=== PATIENT | male | born 1955 | race Two or more races ===

== ENCOUNTER 2024-12-07 09:31 | Inpatient (IN) | payer OTHER ==
[~2024-12-07] VITALS: Ht 172.7 cm; Wt 105.0 kg
[~2024-12-07 09:31] MED LIST: CHOL20007 OR; FEXO-140 PO; HYDR-4609 PO; MULT-1018 PO; ROSU5TAB5 PO; TAMS0.4C39 PO; [UNRECOGNIZED DRUG - CODE] SC
[2024-12-07] MEDS: GABAPENTIN 300 MG CAP ONE (10:00)
[2024-12-07] MEDS: CELECOXIB 100 MG CAP ONE (10:00)
[2024-12-07] MEDS ORDERED: PROPOFOL 10 MG/ML 20 ML IV ONE ×2 (10:12→12:28)
[2024-12-07] MEDS ORDERED: ONDANSETRON HCL 4 MG/2 ML VIAL ONE (10:12)
[2024-12-07] MEDS ORDERED: KETOROLAC TROMETH 30 MG/ML 1ML VIAL ONE (10:12)
[2024-12-07] MEDS ORDERED: LIDOCAINE 1% INJ PF 5ML AMP ONE (10:12)
[2024-12-07] MEDS ORDERED: DexAMETHasone SOD PHOS 10MG/1ML VIAL INJ ONE (10:12)
[2024-12-07] MEDS ORDERED: GLYCOPYRROLATE 0.2 MG/ML 1ML VIAL ONE (10:12)
[2024-12-07] MEDS ORDERED: KETAMINE 50mg/ML 1ml syringe ONE (10:13)
[2024-12-07] MEDS: CELECOXIB 100 MG CAP PO ONE (10:25)
[2024-12-07] MEDS: GABAPENTIN 300 MG CAP PO ONE (10:25)
[2024-12-07] MEDS: ACETAMINOPHEN IV 1000 MG/100ML (10MG/ML) IV ONE (10:25)
[2024-12-07] MEDS: ACETAMINOPHEN IV 100 ML IV ONE (11:22)
[2024-12-07] MEDS: CEFEPIME 1GM/ 50ML 50 ML IV ONE (11:24)
[2024-12-07] MEDS: VANCOMYCIN 1GM/200ML PM 200 ML IV ONE (11:24)
[2024-12-07] MEDS: TRANEXAMIC ACID 20 ML ONE (11:24)
[2024-12-07] MEDS: SODIUM CHLORIDE 0.9% 1,000 ML IV SCH (11:30)
[2024-12-07] MEDS ORDERED: ePHEDrine SULFATE 50 MG/ML AMP ONE (11:48)
[2024-12-07] MEDS: VANCOMYCIN HCL 1000 MG VL ONE (11:59)
--- NOTE | 2024-12-07 13:07 | DVHOP2 ---
Operative Report - 2 Report Details Date: 12/07/24 Preop Diagnosis: Right hip degenerative arthritis Postop Diagnosis: Right hip degenerative arthritis Surgeon: Mert Clay MD Merchandising Manager: Pino BISHOP Anesthesiologist: Dwayne Cazares CRNA Anesthesia: Regional Drains: Deepak closed wound suction Implant: Bobby whitea stem size six, 36 ceramic head 0 neck length, 52 Nisha acetabular shell with flat polyethylene liner Consent: The patient was informed of the risks and benefits of the procedure. These include but are not limited to complications of anesthesia, postoperative infection, incomplete relief of symptoms, recurrence of symptoms, damage to blood vessels, nerves and tendons, deep venous thrombosis, pulmonary embolism and possible need for repeat surgery in the future. Complications: None Estimated Blood Loss: 100 cc Fluids: See anesthesia record Findings: Osteophytes, denuded cartilage with eburnated bone Indications for Surgery: Right hip degenerative arthritis with severe pain and functional impairment despite nonoperative management Name of Procedure Performed Right total hip arthroplasty Procedure Details Procedure Details: The patient was brought to the operating room and given spinal anesthetic with adequate analgesia obtained. The patient was positioned lateral decubitus with the operative side up, stabilized with hip positioners. Axillary roll applied and lower extremities well-padded. Preop patient received IV Ancef, cefepime and IV tranexamic acid. Surgical timeout was performed verifying patient, laterality and procedure. The hip and lower extremity were prepped and draped in sterile fashion. Incision was made over the greater trochanter. Subcutaneous dissection and hemostasis were performed with Bovie and aqua mantis. I identified the fascia which was incised with Bovie and Charnley retractor inserted. I identified the gluteus medius that was split at the junction of its anterior and middle thirds with Bovie then incised off the anterior greater trochanter. I incised the anterior gluteus minimus which was elevated off the capsule. I elevated the reflected head of the rectus. I then performed anterior capsulectomy with Bovie. I extended capsular incision posterior medially and superior laterally. The head was dislocated. Femoral neck cut was made with saw and head removed. Head diameter was calipered on the back table. I adjusted retractors to expose the acetabulum. I circumferentially removed labral tissue with Bovie. I removed foveal tissue with Bovie, curette and rongeur. I then began reaming sequentially paying attention to inclination and version as I went. I trialed which was stable so acetabular implant was brought into the field and tapped into the acetabulum with good fixation achieved. I inserted the screw to block the insertion hole. I then brought up the flat liner which was spun to make sure there was no soft tissue entrapment then tapped in and stability verified. I then brought my attention to the proximal femur. The leg was placed in the sterile bag anteriorly. I cleaned up soft tissue at the greater trochanter shoulder with Bovie. I then used a rongeur to clip the lateral neck. I then used a box osteotome, canal finder and lateralizing rasp. I sequentially broached to size six. I revised the femoral neck cut with calcar planer. I trialed with a 0 neck length and [36] head which was stable. Intraoperative AP pelvis x-ray was obtained to verify length, offset and implant size. The hip was dislocated. Neck and head trial removed. Broach was removed. I tapped in the femoral implant with good fixation achieved. I cleaned and dried the Medina taper and tapped on the ceramic head. The hip was again reduced and tested for stability which was good. I irrigated with bactisurge. I placed a 2 grams of vancomycin in the deep and superficial wound. I repaired the minimus and medius to the anterior greater trochanter with #[5] FiberWire in running fashion . I oversewed the repair with 0 Vicryl. I repaired the fascia with #1 Ethibond interrupted [id number]. Deep subcutaneous tissue was closed with 0 Vicryl. Superficial subcutaneous tissue was closed with 2-0 Vicryl. The skin was closed with hanny. I then applied the Deepak closed wound suction. Patient to lerated the procedure well and was brought to the recovery room in stable condition. Condition Stable Disposition Still a Patient MERT CLAY MD Dec 07, 2024 13:07
[2024-12-07] MEDS ORDERED: diphenhdrAMINE HCL 12.5 MG/5 ML UD PO PRN (13:15)
[2024-12-07] MEDS ORDERED: ONDANSETRON HCL 4 MG/2 ML VIAL IV PRN ×2 (13:15→13:45)
[2024-12-07 13:25] VITALS: PULSE 97; RESP 13; O2SAT 97
[2024-12-07] MEDS ORDERED: hydrALAZINE HCL 20 MG/ML VL IV PRN (13:45)
[2024-12-07] MEDS ORDERED: HYDROmorphone HCL 2 MG/ML VL/or syr IV PRN (13:45)
[2024-12-07] MEDS ORDERED: NALOXONE HCL 0.4 MG/ML VIAL IV PRN (13:45)
[2024-12-07] MEDS ORDERED: FLUMAZENIL 0.1 MG/ML INJ 10ML MDV IV PRN (13:45)
[2024-12-07] MEDS ORDERED: fentaNYL CITRATE 100 MCG/2 ML VL IV PRN (13:45)
[2024-12-07] MEDS ORDERED: ePHEDrine SULFATE 50 MG/ML AMP IV PRN (13:45)
--- NOTE | 2024-12-07 14:12 | DVH ---
CLINICAL INDICATION: INTRA OP ; pain TECHNIQUE: 1 radiographic views of the pelvis were obtained. Comparison: None FINDINGS/IMPRESSION: Postsurgical changes from right hip arthroplasty.
--- NOTE | 2024-12-07 15:45 | DVH ---
EXAM: XY PELVIS AP CLINICAL INDICATION: postop TECHNIQUE: XY PELVIS AP Comparison: XY PELVIS AP on DOS: 12/07/24 FINDINGS/IMPRESSION: RIGHT TOTAL HIP ARTHROPLASTY. MODERATE LEFT HIP OSTEOARTHRITIS.
[2024-12-07] MEDS: oxyCODONE HCL 5MG TAB PO PRN ×2 (16:36→19:00)
[2024-12-07 17:15] VITALS: PULSE 74; RESP 18; O2SAT 97
[2024-12-07] MEDS: ceFAZolin 2 GM/D5W50ml 50 ML IV SCH (17:56)
[2024-12-07] MEDS: TAMSULOSIN HYDROCHLORIDE 0.4 MG CAP PO SCH (17:56)
[2024-12-07] MEDS: ACETAMINOPHEN 325 MG TAB PO SCH (17:57)
[2024-12-07] MEDS: KETOROLAC TROMETH 30 MG/ML 1ML VIAL IV SCH (17:57)
[2024-12-07 20:00] VITALS: PULSE 54; RESP 18; O2SAT 98
[2024-12-07 21:00] VITALS: BP 115/73; PULSE 78; RESP 20; TEMP 98.4; O2SAT 94
[2024-12-07] MEDS: PREGABALIN 25 MG CAP PO SCH (21:46)
[2024-12-08] VITALS (8 sets, daily range): BP systolic 113–144; BP diastolic 61–76; PULSE 54–71; RESP 16–20; TEMP 97.6–98.7; O2SAT 92–99
[2024-12-08] MEDS: oxyCODONE HCL 5MG TAB PO PRN (02:00)
[2024-12-08 06:57] LABS: Basophils # (auto) 0 10 ^3/uL (0-0.2); Basophils % (auto) 0.1 % (0.0-2.0); Eosinophils # (auto) 0 10 ^3/uL (0-0.8); Hematocrit 39.1 % (41.0-53.0); Hemoglobin 12.8 g/dL (13.5-17.5); Lymphocytes % (auto) 11.5 % (10.0-50.0); Mean Corpuscular Hgb Conc. 32.8 g/dL (32.0-36.0); Mean Corpuscular Volume 85.5 fL (80.0-100.0); Monocytes # (auto) 1.1 10 ^3/uL (0-1.3); Neutrophils # (auto) 14.6 10 ^3/uL (1.6-8.6); Neutrophils % (auto) 82.4 % (37.0-80.0); Nucleated Red Blood Cells % 0.1 %; Platelet Count (auto) 262 10^3/uL (140-450); Red Blood Cells 4.58 10^6/uL (4.5-5.90); Red Cell Distribution Width 12.7 % (11.8-14.3); White Blood Cell 17.7 10^3/uL (4.4-10.8)
[2024-12-08 07:01] LABS: Anion Gap 9 (5-15); Carbon Dioxide 23 mmol/L (20-31); Chloride 104 mmol/L (98-107); Potassium 4.6 mmol/L (3.5-5.1)
[2024-12-08 07:02] LABS: Calcium 9.2 mg/dL (8.7-10.4); Sodium 136 mmol/L (136-145)
[2024-12-08 07:07] LABS: BUN/Creatinine Ratio 12.5 (10.0-20.0); Blood Urea Nitrogen 12 mg/dL (9-23)
[2024-12-08 07:08] LABS: Glucose 122 mg/dL (74-106)
[2024-12-08] MEDS: APIXABAN 2.5 MG TAB PO SCH (09:17)
[2024-12-08] MEDS: DOCUSATE SOD 100 MG CAP PO PRN (15:16)
--- NOTE | 2024-12-08 16:55 | DVHINCON2 ---
Date Seen: Dec 08, 2024 Referring Physician Orthopedic surgeon. Reason for Consultation Medical management. History of Present Illness 69-year-old male with a known history of dyslipidemia, BPH, degenerative joint disease of the right hip who was brought in by orthopedics for elective proce dure. Patient is status post right total hip arthroplasty postop Bear one. Patient is currently complaining of 7/10 pain in the right hip. Patient otherwise denies any chest pain shortness breath fevers chills nausea vomiting diarrhea hematemesis hematochezia melena dysuria hematuria. Past Medical History Degenerative joint disease of the right hip Dyslipidemia BPH Past Surgical History Status post right hip total arthroplasty Allergies: Coded Allergies: Penicillins (Unverified Allergy, Severe, Syncope, 12/03/24) Home Meds Reported Medications Multiple Vitamin (Multivitamins) Tab, 1 TAB PO DAILY, #30 TAB 2 Refills 12/03/24 Cholecalciferol (VITAMIN D3) 2,000 Unit Tab, 2000 UNIT OR DAILY, TAB 12/03/24 Omalizumab (Xolair) 300 Mg/2 Ml Inj, 300 MG SC once monthly, INJ 12/03/24 Hydrocodone-Acetaminophen (Hydrocodone Bitartrate/AC 7.5-300 mg) 1 Tab Tab, 1 TAB PO PRN, TAB 12/03/24 Fexofenadine Hcl (Fexofenadine Hcl) 180 Mg Tab, 180 MG PO DAILY, TAB 12/03/24 Tamsulosin Hcl (Tamsulosin Hcl) 0.4 Mg Cap, 0.4 MG PO DAILY, CAP 12/03/24 Rosuvastatin Calcium (Crestor) 5 Mg Tab, 5 MG PO DAILY, TAB 12/03/24 Current Medications Current Medications Medications (Trade) Dose Ordered Sig/Sujey Route PRN Reason Start Time Stop Time Status Last Admin Tamsulosin HCl (Flomax) 0.4 mg QPM PO 12/07/24 18:00 12/07/24 17:56 Patient Own Medication 180 mg DAILY PO 12/08/24 10:00 Pregabalin (Lyrica Capsule) 50 mg BID PO 12/07/24 22:00 12/08/24 09:18 Apixaban (Eliquis) 2.5 mg BID PO 12/08/24 10:00 01/12/25 09:59 12/08/24 09:17 Acetaminophen (Tylenol Tablet) 650 mg Q6HP PO 12/07/24 18:00 12/08/24 11:42 Ketorolac Tromethamine (Toradol Injection) 15 mg Q6HR IV 12/07/24 18:00 12/12/24 17:59 12/08/24 11:42 Docusate Sodium (Colace Capsule) 100 mg BIDPRN PRN PO FOR CONSTIPATION 12/08/24 13:15 12/08/24 15:16 Patient Own Medication 1 HS PO 12/08/24 21:00 UNV Atorvastatin Calcium (Lipitor) 10 mg HS PO 12/08/24 22:00 Review of Systems 12 review of system were negative except mentioned above. 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 Labs/Diagnostic Data Labs Test 12/08/24 06:05 Range/Units White Blood Count 17.7 H 4.4-10.8 10^3/uL Red Blood Count 4.58 4.5-5.90 10^6/uL Hemoglobin 12.8 L 13.5-17.5 g/dL Hematocrit 39.1 L 41.0-53.0 % Mean Corpuscular Volume 85.5 80.0-100.0 fL Mean Corpuscular Hemoglobin 28.0 28.0-32.0 pg Mean Corpuscular Hemoglobin Concent 32.8 32.0-36.0 g/dL Red Cell Distribution Width 12.7 11.8-14.3 % Platelet Count 262 140-450 10^3/uL Mean Platelet Volume 8.3 6.9-10.8 fL Neutrophils (%) (Auto) 82.4 H 37.0-80.0 % Lymphocytes (%) (Auto) 11.5 10.0-50.0 % Monocytes (%) (Auto) 6.0 0.0-12.0 % Eosinophils (%) (Auto) 0.0 0.0-7.0 % Basophils (%) (Auto) 0.1 0.0-2.0 % Neutrophils # (Auto) 14.6 H 1.6-8.6 10 ^3/uL Lymphocytes # (Auto) 2.0 0.4-5.4 10 ^3/uL Monocytes # (Auto) 1.1 0-1.3 10 ^3/uL Eosinophils # (Auto) 0 0-0.8 10 ^3/uL Basophils # (Auto) 0 0-0.2 10 ^3/uL Nucleated Red Blood Cells 0.1 % Sodium Level 136 136-145 mmol/L Potassium Level 4.6 3.5-5.1 mmol/L Chloride Level 104 98-107 mmol/L Carbon Dioxide Level 23 20-31 mmol/L Anion Gap 9 5-15 Blood Urea Nitrogen 12 9-23 mg/dL Creatinine 0.96 0.700-1.30 mg/dL Glomerular Filtration Rate Calc 85 >90 mL/min BUN/Creatinine Ratio 12.5 10.0-20.0 Serum Glucose 122 H 74-106 mg/dL Calcium Level 9.2 8.7-10.4 mg/dL Assessment 69-year-old male with a known history of BPH , dyslipidemia, degenerative joint disease who was brought in by orthopedics for elective procedure of the right hip. 1. Dyslipidemia on statin 2. BPH on tamsulosin 3. Degenerative joint disease of the right hip status post right total hip arthroplasty -thank you for the consultation, pain meds as needed, physical therapy evaluation and treatment -Resume statin and tamsulosin. Plan discussed with: Patient Date of Service: Dec 08, 2024 Billing Provider: JEFF LIAO MD Common Visit Codes: NOT BILLABLE JEFF LIAO MD Dec 08, 2024 16:55
--- NOTE | 2024-12-08 20:18 | DVHPN2 ---
Progress Note Progress Note S: Patient seen and examined. Pain well controlled 7-01/23 today. Denies chest or shortness of breath. Denies numbness, paresthesias or weakness. O: AFVSS Exam: NAD, a+ox4, unlabored breathing RLE: dressings c/d/I; fires Q/HS/EHL/FHL/TA/GS muscles; SILT L3-S1; BCR; 2+ DP and PT pulses; BCR A/P: POD#1 s/p R ARIE -IV ABX x 24 hours -DVT ppx: SCDs; Blood thinner as prescribed per protocol -Pain control with hospitalist -WBAT, posterior hip precaution Did physical therapy today The patient will be ready to be discharged once pain is controlled , possible tomorrow Plan discussed with: Patient Visit Coding Surgery Date of Service if different f: Dec 08, 2024 Billing Provider: TIMMY LARA Surgery Visit Codes: [id number] INP/OBS CARE(MOD) TIMMY LARA Dec 08, 2024 20:18
[2024-12-08] MEDS ORDERED: PATIENTS OWN MEDICATION PO SCH (21:00)
[2024-12-08] MEDS: ATORVASTATIN 20 MG TAB PO SCH (21:33)
[2024-12-09 01:00] VITALS: BP 137/69; PULSE 67; RESP 18; TEMP 97.8; O2SAT 94
[2024-12-09 05:00] VITALS: BP 126/67; PULSE 63; RESP 18; TEMP 98.1; O2SAT 95
[2024-12-09 09:00] VITALS: BP 125/66; PULSE 69; RESP 15; TEMP 97.9; O2SAT 96
[2024-12-09 09:20] LABS: Basophils # (auto) 0 10 ^3/uL (0-0.2); Basophils % (auto) 0.1 % (0.0-2.0); Eosinophils # (auto) 0.3 10 ^3/uL (0-0.8); Hematocrit 39.1 % (41.0-53.0); Hemoglobin 12.9 g/dL (13.5-17.5); Lymphocytes # (auto) 4.7 10 ^3/uL (0.4-5.4); Lymphocytes % (auto) 33.9 % (10.0-50.0); Mean Corpuscular Hemoglobin 28.2 pg (28.0-32.0); Mean Corpuscular Hgb Conc. 33.1 g/dL (32.0-36.0); Mean Corpuscular Volume 85.2 fL (80.0-100.0); Monocytes # (auto) 0.6 10 ^3/uL (0-1.3); Monocytes % (auto) 4.5 % (0.0-12.0); Neutrophils # (auto) 8.2 10 ^3/uL (1.6-8.6); Neutrophils % (auto) 59.5 % (37.0-80.0); Nucleated Red Blood Cells % 0.1 %; Platelet Count (auto) 251 10^3/uL (140-450); Red Blood Cells 4.58 10^6/uL (4.5-5.90); Red Cell Distribution Width 13.6 % (11.8-14.3); White Blood Cell 13.7 10^3/uL (4.4-10.8)
--- NOTE | 2024-12-09 10:51 | DVHPN2 ---
Progress Note - Dictate Date Seen: Dec 09, 2024 Medical Necessity Reason Pt with a Central, PICC or Fol: No Subjective Patient was lying comfortably in bed during my evaluation reports some postoperative hip pain that is being well managed with the help of pain medication today. Patient reports that he was able to get up and walk with the help of physical therapy and his walker and was able to get down the [place] to the nurse's station and back to his bed with some postoperative hip pain. Patient reports feeling much more stable today compared to yesterday and is ready to go home. vital signs Vital Sign Date Time Temp Pulse Resp B/P (MAP) Pulse Ox O2 Delivery O2 Flow Rate FiO2 12/09/24 09:00 97.9 69 15 125/66 (85) 96 97.9 12/09/24 08:00 Room Air* 0 21 Total Intake and Output 12/08/24 12/08/24 12/09/24 15:00 23:00 07:00 Intake Total 3600 ml 1600 ml Output Total 800 ml 300 ml 1950 ml Balance -800 ml 3300 ml -350 ml medications Current Medications Medications Dose Ordered Sig/Sujey Route Start Time Stop Time Status Last Admin Dose Admin Tamsulosin HCl 0.4 mg QPM PO 12/07/24 18:00 12/08/24 17:20 0.4 MG Patient Own Medication 180 mg DAILY PO 12/08/24 10:00 Pregabalin 50 mg BID PO 12/07/24 22:00 12/09/24 09:17 50 MG Apixaban 2.5 mg BID PO 12/08/24 10:00 01/12/25 09:59 12/09/24 09:17 2.5 MG Sodium Chloride 1,000 ml @ 125 mls/hr Q8H IV 12/07/24 11:30 12/09/24 05:03 125 MLS/HR Acetaminophen 650 mg Q6HP PO 12/07/24 18:00 12/09/24 07:10 650 MG Ketorolac Tromethamine 15 mg Q6HR IV 12/07/24 18:00 12/12/24 17:59 12/09/24 00:38 15 MG Ondansetron HCl 4 mg Q4HP PRN IV 12/07/24 13:15 Oxycodone HCl 5 mg Q4HP PRN PO 12/07/24 11:30 12/08/24 02:00 5 MG Oxycodone HCl 10 mg Q4HP PRN PO 12/07/24 11:30 12/09/24 10:11 10 MG Diphenhydramine HCl 25 mg Q6HP PRN PO 12/07/24 13:15 Docusate Sodium 100 mg BIDPRN PRN PO 12/08/24 13:15 12/08/24 21:32 100 MG Patient Own Medication 1 HS PO 12/08/24 21:00 UNV Atorvastatin Calcium 10 mg HS PO 12/08/24 22:00 12/08/24 21:33 10 MG objective A&O x4 in no acute distress Hip range of motion grossly limited with pain on movement Deepak dressing clean, dry, intact, and maintaining suction No distal edema or calf tenderness to palpation Neurovascularly intact with cap refill less than 2 seconds laboratory and microbiology Laboratory Tests 12/09/24 08:49 12/08/24 06:05 Test 12/08/24 06:05 Range/Units Serum Glucose 122 H 74-106 mg/dL Assessment/Plan Patient to be discharged home and advised to remain weight-bearing as tolerated with the assistance of a walker. I instructed the patient to follow up with our office in 10-14 days for his 1st postoperative evaluation and to maintain his dressings clean, dry, intact, and maintaining suction. Rx sent via our outpatient EMR system. I also advised the patient to call our office if he has any remaining questions or concerns. He understood and agreed. Plan discussed with: Patient MELÉNDEZ,JENCORRINE BISHOP Dec 09, 2024 10:51
--- NOTE | 2024-12-09 10:52 | DVHDS2 ---
Discharge Summary Date of Admission Dec 07, 2024 at 11:28 Date of Discharge: Dec 09, 2024 Labs/Diagnostic Data: Laboratory Results Test 12/09/24 08:49 12/08/24 06:05 White Blood Count 13.7 10^3/uL (4.4-10.8) Red Blood Count 4.58 10^6/uL (4.5-5.90) Hemoglobin 12.9 g/dL (13.5-17.5) Hematocrit 39.1 % (41.0-53.0) Mean Corpuscular Volume 85.2 fL (80.0-100.0) Mean Corpuscular Hemoglobin 28.2 pg (28.0-32.0) Mean Corpuscular Hemoglobin Concent 33.1 g/dL (32.0-36.0) Red Cell Distribution Width 13.6 % (11.8-14.3) Platelet Count 251 10^3/uL (140-450) Mean Platelet Volume 8.2 fL (6.9-10.8) Neutrophils (%) (Auto) 59.5 % (37.0-80.0) Lymphocytes (%) (Auto) 33.9 % (10.0-50.0) Monocytes (%) (Auto) 4.5 % (0.0-12.0) Eosinophils (%) (Auto) 2.0 % (0.0-7.0) Basophils (%) (Auto) 0.1 % (0.0-2.0) Neutrophils # (Auto) 8.2 10 ^3/uL (1.6-8.6) Lymphocytes # (Auto) 4.7 10 ^3/uL (0.4-5.4) Monocytes # (Auto) 0.6 10 ^3/uL (0-1.3) Eosinophils # (Auto) 0.3 10 ^3/uL (0-0.8) Basophils # (Auto) 0 10 ^3/uL (0-0.2) Nucleated Red Blood Cells 0.1 % Sodium Level 136 mmol/L (136-145) Potassium Level 4.6 mmol/L (3.5-5.1) Chloride Level 104 mmol/L (98-107) Carbon Dioxide Level 23 mmol/L (20-31) Anion Gap 9 (5-15) Blood Urea Nitrogen 12 mg/dL (9-23) Creatinine 0.96 mg/dL (0.700-1.30) Glomerular Filtration Rate Calc 85 mL/min (>90) BUN/Creatinine Ratio 12.5 (10.0-20.0) Serum Glucose 122 mg/dL (74-106) Calcium Level 9.2 mg/dL (8.7-10.4) Other Laboratory Tests 12/09/24 08:49 12/08/24 06:05 Brief Hx & Hospital Course: Patient was brought to the hospital on Friday to undergo a right total hip arthroplasty. He tolerated the procedure well without complications and was kept overnight for postoperative observation. Patient remained medically stable but was experiencing severe postoperative hip pain that was limiting his physical activity and ambulation. Pain has been much better controlled today and patient reports that he was able to get up and walk with the help of physical therapy and his walker and was able to get down the [place] to the nurse's station and back to his room with some postoperative hip pain. Patient was otherwise feeling well denying any other complaint or concern during my evaluation and was ready to go home. Condition at Discharge: Stable Final Diagnosis/Problems List Right hip degenerative arthritis Discharge Disposition: Home Discharge Instruct/Medications Diet: Regular Activity: See Comment Activity comment: Patient to remain weight-bearing as tolerated with the assistance of a walker Follow Up/Referral: I instructed the patient to follow up with our office in 10-14 days for his 1st postoperative evaluation Medications: Rx sent via our outpatient EMR system Discharge Statement: "Patient was advised to return to the ER or call 911 if any headaches, dizziness, shortness of breath, chest pain, abdominal pain, bleeding, fevers, or worsening of medical condition. Patient was counseled about treatment plan, medications, possible side effects, patientverbalized understanding. All questions were answered to the best of my ability. This discharge took greater then 30 minutes in planning, reviewing documentation, counseling the patient, and discussing with other team members." ASSESSMENT ASSESSMENT Assessment Right hip degenerative arthritis PEG MELÉNDEZ Dec 09, 2024 10:52
[2024-12-09 13:00] VITALS: BP 151/71; PULSE 81; RESP 16; TEMP 97.9; O2SAT 94
[2024-12-09 15:49] VITALS: BP 151/71; PULSE 81; RESP 16; TEMP 97.9; O2SAT 95
[2024-12-09 17:00] VITALS: BP 144/78; PULSE 75; RESP 16; TEMP 98; O2SAT 95
== END 2024-12-09 18:44 | disposition home or self-care (01) | DRG 470 ==
LOC: SUR 09:31 → OVERFLOW 11:28 → WEST WING 17:24
PROVIDERS: ADMIT Orthopaedic Surgery; ATTEND Orthopaedic Surgery
PROC: 0SR904A Replacement of Right Hip Joint with Ceramic on Polyethylene Synthetic Substitute, Uncemented, Open Approach (ICD-10-PCS; principal; 2024-12-07 11:23)
DX: M16.11 Unilateral primary osteoarthritis, right hip (principal); E78.5 Hyperlipidemia, unspecified; N40.0 Benign prostatic hyperplasia without lower urinary tract symptoms; Z88.0 Allergy status to penicillin; Z79.899 Other long term (current) drug therapy
CPT/HCPCS: 36415; 72170; 80048; 85025; 86850; 86900; 86901; 97110; 97116; 97163; 97530; G0378; J0131; J1100; J1885; J2405; J2704

== ENCOUNTER 2025-04-25 07:42 | Inpatient (IN) | payer OTHER ==
[~2025-04-25] VITALS: Ht 172.7 cm; Wt 79.0 kg
--- NOTE | 2025-04-25 09:35 | ED.PDOC ---
GI ASSESSMENT HPI Comments 69 year old male presents to the ED with a chief complaint of abdominal pain onset last night. Patient states he began experiencing abdominal pain, nausea/vomiting since last night as well as diarrhea. He has been experiencing bowel movement about every hour, noticed blood in stool, worsened throughout the night. Last colonoscopy was about 5 years ago. Denies hematemesis, dizziness, headache, fever, chills, dysuria, hematuria. No other symptoms or modifying factors present at this time. Chief Complaint: Abdominal Pain Time Seen by MD: 09:30 Reviewed Notes: Medications, Allergies Allergies: Coded Allergies: Penicillins (Unverified Allergy, Severe, Syncope, 12/03/24) Home Meds Reported Medications Multiple Vitamin (Multivitamins) Tab, 1 TAB PO DAILY, #30 TAB 2 Refills 12/03/24 Cholecalciferol (VITAMIN D3) 2,000 Unit Tab, 2000 UNIT OR DAILY, TAB 12/03/24 Omalizumab (Xolair) 300 Mg/2 Ml Inj, 300 MG SC once monthly, INJ 12/03/24 Hydrocodone-Acetaminophen (Hydrocodone Bitartrate/AC 7.5-300 mg) 1 Tab Tab, 1 TAB PO PRN, TAB 12/03/24 Fexofenadine Hcl (Fexofenadine Hcl) 180 Mg Tab, 180 MG PO DAILY, TAB 12/03/24 Tamsulosin Hcl (Tamsulosin Hcl) 0.4 Mg Cap, 0.4 MG PO DAILY, CAP 12/03/24 Rosuvastatin Calcium (Crestor) 5 Mg Tab, 5 MG PO DAILY, TAB 12/03/24 Information Source: Patient, Spouse Mode of Arrival: Ambulatory Timing: Hours Duration: Since onset Prehospital treatment: None Quality: Sharp Stool: Blood Streaked, Loose Severity: Moderate Recent: None Recent Hx of: None Pain Location: Diffuse Modifying Factors: Nothing Associated sign and symptoms: Nausea, Vomiting, Diarrhea, Abdominal Pain, Blood in Stool Past Medical History PAST MEDICAL HISTORY: Denies Surgical History: Denies all surgeries Surgical History (Other): hip replacement Family History Family History: Reviewed,noncontributory to illness, No family hx of Cancer, No family hx of DM, No family hx of Heart shaun, No family hx of HTN, No family hx ofKidney shaun, No family hx of Liver shaun, No family hx of Lung shaun, No family hx of Stroke Social History Smoker: Non-Smoker Alcohol: Denies ETOH Use Drugs: Denies Drug Use Lives In: Home Constitutional: denies: chills, diaphoresis, fatigue, fever, malaise, sweats, weakness, others EENTM: denies: blurred vision, double vision, ear bleeding, ear discharge, ear drainage, ear pain, ear ringing, eye pain, eye redness, hearing loss, mouth pain, mouth swelling, nasal discharge, nose bleeding, nose congestion, nose pain, photophobia, tearing, throat pain, throat swelling, voice changes, others Respiratory: denies: cough, hemoptysis, orthopnea, SOB at rest, shortness of breath, SOB with excertion, stridor, wheezing, others Cardiovascular: denies: chest pain, dizzy spells, diaphoresis, Dyspnea on exertion, edema, irregular heart beat, left arm pain, lightheadedness, palpitations, PND, syncope, others Gastrointestinal: reports: abdominal pain, diarrhea, nausea, rectal bleeding, vomiting; denies: abdomen distended, blood streaked bowels, constipated, dysphagia, difficulty swallowing, hematemesis, melena, poor appetite, poor fluid intake, rectal pain, others Genitourinary: denies: burning, dysuria, flank pain, frequency, hematuria, incontinence, penile discharge, penile sore, pain, testicle pain, testicle swelling, urgency, others Neurological: denies: dizziness, fainting, headache, left sided numbness, left sided weakness, numbness, paresthesia, pre-existing deficit, right sided numbness, right sided weakness, seizure, speech problems, tingling, tremors, weakness, others Musculoskeletal: denies: back pain, gout, joint pain, joint swelling, muscle pain, muscle stiffness, neck pain, others Integumetry: denies: bruises, change in color, change in hair/nails, dryness, laceration, lesions, lumps, rash, wounds, others Allergic/Immunocompromised: denies: Difficulty Healing, Frequent Infections, Hives, Itching, others Hematologic/Lymphatic: denies: anemia, blood clots, easy bleeding, easy bruising, swollen glands, others Endocrine: denies: excessive hunger, excessive sweating, excessive thirst, excessive urination, flushing, intolerance to cold, intolerance to heat, unexplained weight gain, unexplained weight loss, others Psychiatric: denies: anxiety, bipolar disorder, depression, hopeless, panic disorder, schizophrenia, sleepless, suicidal, others All Other Systems: Reviewed and Negative Physical Exam General Appearance: Normal HEENT: Normal ENT Inspection, Pharynx Normal, TMs Normal Neck: Full Range of Motion, Non-Tender, Normal, Normal Inspection Respiratory: Chest Non-Tender, Lungs Clear, No Accessory Muscle Use, No Respiratory Distress, Normal Breath Sounds Cardiovascular: No Edema, No JVD, No Murmur, No Gallop, Normal Peripheral Pu lses, Regular Rate/Rhythm Breast Exam: Deferred Gastrointestinal: No Organomegaly, Non Tender, No Pulsatile Mass, Normal Bowel Sounds, Soft Genitalia: Deferred Pelvic: Deferred Rectal: Deferred Extremities: No calf tenderness, Normal capillary refill, Normal inspection, Normal range of motion, Non-tender, No pedal edema Musculoskeletal : Apperance: Normal Neurologic: Alert, deep 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 Was a procedure done?: No GI differential Dx Differential Diagnosis: Gastritis/PUD, Gastroenteritis, Inflammatory BD, Ischemic Bowel, Dehydration, Electrolyte Imbalance X-Ray, Labs, Meds, VS Vital Signs Date Time Temp Pulse Resp B/P (MAP) Pulse Ox O2 Delivery O2 Flow Rate FiO2 04/25/25 10:32 70 15 126/70 04/25/25 10:10 Room Air* 0 21 04/25/25 10:09 98.0 77 18 157/84 (108) 98 98.0 04/25/25 10:02 77 18 157/84 04/25/25 07:43 97.7 91 16 139/84 97 97.7 Lab Test 04/25/25 09:36 Range/Units White Blood Count 13.4 H 4.4-10.8 10^3/uL Red Blood Count 5.38 4.5-5.90 10^6/uL Hemoglobin 15.3 13.5-17.5 g/dL Hematocrit 45.9 41.0-53.0 % Mean Corpuscular Volume 85.3 80.0-100.0 fL Mean Corpuscular Hemoglobin 28.4 28.0-32.0 pg Mean Corpuscular Hemoglobin Concent 33.3 32.0-36.0 g/dL Red Cell Distribution Width 13.5 11.8-14.3 % Platelet Count 308 140-450 10^3/uL Mean Platelet Volume 7.7 6.9-10.8 fL Neutrophils (%) (Auto) 74.5 37.0-80.0 % Lymphocytes (%) (Auto) 18.9 10.0-50.0 % Monocytes (%) (Auto) 6.3 0.0-12.0 % Eosinophils (%) (Auto) 0.1 0.0-7.0 % Basophils (%) (Auto) 0.2 0.0-2.0 % Neutrophils # (Auto) 10.0 H 1.6-8.6 10 ^3/uL Lymphocytes # (Auto) 2.5 0.4-5.4 10 ^3/uL Monocytes # (Auto) 0.8 0-1.3 10 ^3/uL Eosinophils # (Auto) 0 0-0.8 10 ^3/uL Basophils # (Auto) 0 0-0.2 10 ^3/uL Nucleated Red Blood Cells 0.1 % Prothrombin Time 10.8 9.3-11.8 sec Prothrombin Time INR 1.02 0.9-1.15 Activated Partial Thromboplast Time 27.9 24.5-34.5 SEC Sodium Level 140 136-145 mmol/L Potassium Level 5.2 H 3.5-5.1 mmol/L Chloride Level 105 98-107 mmol/L Carbon Dioxide Level 26 20-31 mmol/L Anion Gap 9 5-15 Blood Urea Nitrogen 7 L 9-23 mg/dL Creatinine 1.07 0.700-1.30 mg/dL Glomerular Filtration Rate Calc 74 >90 mL/min BUN/Creatinine Ratio 6.5 L 10.0-20.0 Serum Glucose 98 74-106 mg/dL Calcium Level 9.9 8.7-10.4 mg/dL Current Medications Medications (Trade) Dose Ordered Sig/Sujey Route Start Time Stop Time Status Last Admin Sodium Chloride 1,000 ml @ 1,000 mls/hr Q1H ONCE IV 04/25/25 09:30 04/25/25 10:29 DC 04/25/25 10:03 Ondansetron HCl (Zofran) 4 mg ONCE ONCE IV 04/25/25 09:30 04/25/25 09:31 DC 04/25/25 10:02 Morphine Sulfate 4 mg ONCE ONCE IV 04/25/25 09:30 04/25/25 09:31 DC 04/25/25 10:02 Time of 1ST Reevaluation: 10:00 Reevaluation 1ST: Unchanged Patient Education/Counseling: Diagnosis, Treatment, Need For Follow Up Family Education/Counseling: Diagnosis, Treatment, Need For Follow Up SEPSIS Sepsis Screen Date sepsis recognized/suspect: Apr 25, 2025 Time Sepsis recognized/suspect: 742 Recent Procedure: No On Antibiotic Therapy: No Respiratory Rate >20: No Heart Rate >90: Yes Temp<36 C (96.8 F) or >38.3 C: No SBP <90 or MAP <65 mmHG: No New Acute Mental Status Change: No Is the patient on CPAP, BIPAP,: No Physician Orders Ct Ab Pel With Iv Con Only (04/25/25 09:27) Metronidazole 500mg/100ml (Flagyl 500mg/ (04/25/25 12:00) Vital Signs Date Time Temp Pulse Resp B/P (MAP) Pulse Ox O2 Delivery O2 Flow Rate FiO2 04/25/25 10:32 70 15 126/70 04/25/25 10:10 Room Air* 0 21 04/25/25 10:09 98.0 77 18 157/84 (108) 98 98.0 04/25/25 10:02 77 18 157/84 04/25/25 07:43 97.7 91 16 139/84 97 97.7 Laboratory Tests Test 04/25/25 09:36 White Blood Count 13.4 10^3/uL (4.4-10.8) H Medications Medications Dose Ordered Sig/Sujey Route Start Time Stop Time Status Last Admin Dose Admin Morphine Sulfate 4 mg ONCE ONCE IV 04/25/25 09:30 04/25/25 09:31 DC 04/25/25 10:02 Ondansetron HCl 4 mg ONCE ONCE IV 04/25/25 09:30 04/25/25 09:31 DC 04/25/25 10:02 Sodium Chloride 1,000 ml @ 1,000 mls/hr Q1H ONCE IV 04/25/25 09:30 04/25/25 10:29 DC 04/25/25 10:03 Departure 1 Departure Time of Disposition: 11:54 (Patient presented with abdominal pain that was concerning for possible appendicits, gastritis, cholecystitis, colitis, gastroenteritis, sbo, or orther possible surgical emergency. Data: 1. I ordered and reviewed the result of at least 3 labs including a CBC, BMP, and Urinalysis. 2. I independently interpreted the following tests: CT Abdomen and Pelvis is concerning for colitis .Risk:This patient has a high risk of morbidity due to further diagnostic testing or treatment and may suffer from an acute abdominal process disorder. Workup reveals colitis and bright red blood per rectum and patient should be admitted for further workup. and possible expert consultation. ) Impression: Primary Impression: Non-specific colitis Additional Impressions: Bright red blood per rectum Intractable abdominal pain Disposition: ADMITTED INPATIENT Admit to: Tele Condition: Guarded Critical Care Note Critical Care Time?: Yes Critical care comment: Intractable abdominal pain Authorized and Performed by: David Pierre MD Total critical care time: Approximately 39 minutes Due to a high probability of clinically significant, life threatening deterioration, the patient required my highest level of preparedness to intervene emergently and I personally spent this critical care time directly and personally managing the patient. This critical care time included obtaining a history; examining the patient; pulse oximetry; ordering and review of studies; arranging urgent treatment with development of a management plan; evaluation of patient's response to treatment; frequent reassessment; and, discussions with other providers. This critical care time was performed to assess and manage the high probability of imminent, life-threatening deterioration that could result in multi-organ failure. It was exclusive of separately billable procedures and treating other patients and teaching time. Please see my other sections and the rest of the note for further information on patient assessment and treatment. Stability Stability form required: No Heart Score Heart Score: Heart Score Response (Comments) Value History N/A 0 EKG N/A 0 Age N/A 0 Risk Factors N/A 0 Troponin N/A 0 Total 0 I personally scribed for DAVID PIERRE MD ([email or web address]) on 04/25/25 at 09:35. Electronically submitted by Corrie Mayen ([email or web address]). DAVDI PIERRE MD Apr 25, 2025 09:35
[2025-04-25 09:55] LABS: Hematocrit 45.9 % (41.0-53.0); Hemoglobin 15.3 g/dL (13.5-17.5); Mean Corpuscular Hemoglobin 28.4 pg (28.0-32.0); Mean Corpuscular Volume 85.3 fL (80.0-100.0); Nucleated Red Blood Cells % 0.1 %
[2025-04-25 10:02] LABS: Sodium 140 mmol/L (136-145)
[2025-04-25] MEDS: ONDANSETRON HCL 4 MG/2 ML VIAL IV ONE (10:02)
[2025-04-25] MEDS: MORPHINE SULFATE 4 MG/ML SYR/VIAL IV ONE (10:02)
[2025-04-25 10:03] LABS: Calcium 9.9 mg/dL (8.7-10.4); Carbon Dioxide 26 mmol/L (20-31)
[2025-04-25] MEDS: SODIUM CHLORIDE 0.9% 1,000 ML IV ONE (10:03)
[2025-04-25 10:08] LABS: BUN/Creatinine Ratio 6.5 (10.0-20.0); Blood Urea Nitrogen 7 mg/dL (9-23); Glucose 98 mg/dL (74-106); Potassium 5.2 mmol/L (3.5-5.1)
[2025-04-25 10:16] LABS: INR 1.02 (0.9-1.15); Partial Thromboplastin Time 27.9 SEC (24.5-34.5); Prothrombin Time 10.8 sec (9.3-11.8)
[2025-04-25 10:21] LABS: Anion Gap 9 (5-15); Chloride 105 mmol/L (98-107)
[2025-04-25] MEDS: IOHEXOL 300 MG/ML 100ML BOTTLE IJ ONE (10:37)
--- NOTE | 2025-04-25 11:31 | DVH ---
Exam: CT CT AB PEL WITH IV CON ONLY History: Abdominal pain, brbpr Comparison Study: US ABDOMEN COMPLETE on DOS: 02/23/25 Contrast: Type of contrast: Omnipaque 300 Contrast injected: 100 mL Contrast wasted: 0 TECHNIQUE: CT of the abdomen pelvis was performed with intravenous contrast. Coronal sagittal reformatted images are submitted. Radiation Dose Information: CT Dose: CTDI volume is 14.89 mGy. Dose-length product is 876.36 mGy*cm FINDINGS: Lung Bases: No acute or significant lung base finding. Normal heart size. No pleural or pericardial effusion. Liver: The liver is normal in size. No focal lesions. Normal hepatic vascular enhancement. Gallbladder and Biliary Tree: Multiple gallstones. No significant biliary ductal dilatation. Spleen: Unremarkable Pancreas: The pancreas is normal in appearance without focal lesions or abnormal enhancement. Adrenal Glands: Unremarkable Kidneys: Kidneys demonstrate normal symmetric enhancement without focal lesions, calculi or hydronephrosis. Bladder: Unremarkable Bowel: The stomach is grossly normal in appearance. The small bowel is normal in caliber. There is long segment, marked mucosal thickening beginning at the level of the splenic flexure and ending in the sigmoid colon, with fat stranding. There is sigmoid diverticulosis without focal inflammation to suggest diverticulitis. No acute appendicitis. Peritoneum: No pneumoperitoneum. No ascites. Lymphadenopathy: No mesenteric, retroperitoneal or periportal lymphadenopathy. Abdominal Wall and Mesentery: Unremarkable. Vasculature: The visualized abdominal aorta is normal in size and caliber. Abdominal and pelvic vessels demonstrate normal enhancement. There are atherosclerotic calcifications in the aorta. Pelvic Organs: Enlarged prostate. Musculoskeletal: No aggressive focal bony lesions, acute fractures or dislocation. Right hip prosthesis. Soft tissues: Unremarkable. IMPRESSION: 1. Long segment, marked mucosal thickening beginning at the level of the splenic flexure and ending in the sigmoid colon, with fat stranding. Findings are concerning for infectious or inflammatory colitis. Colonoscopy may be obtained when feasible. 2. Cholelithiasis. 3. Sigmoid diverticulosis without focal inflammation to suggest diverticulitis. 4. Prostatomegaly.
[2025-04-25] MEDS ORDERED: ACETAMINOPHEN 325 MG TAB PO PRN (16:00)
[2025-04-25] MEDS ORDERED: MORPHINE SULFATE INJ 2 MG/ml SYRG IV PRN ×2 (16:00)
[2025-04-25] MEDS ORDERED: ONDANSETRON HCL 4 MG/2 ML VIAL IV PRN (16:00)
[2025-04-25] MEDS ORDERED: NITROGLYCERIN 0.4 MG SL TAB SL PRN (16:00)
--- NOTE | 2025-04-25 16:02 | DVHHP2 ---
History of Present Illness Reason for Visit: Abdominal pain and bright red blood per rectum for last two days History of Present Illness 69-year-old male with a known history of BPH, dyslipidemia, history of hives who initially presented to the hospital with the abdominal pain associated with a bright red per rectum found to have colitis. Patient denies any previous history of colitis. Patient's denies any fevers chills did have some nausea but denies any vomiting. Patient's has a 3-4 episodes of bright red blood per rectum. Cardiovascular: hyperipidemia GI: GI bleed, Inflam bowel disease Past Surgical History: Total hip replacement Family History: None Smoke: No Lives: with Family Review of Systems Review of Systems Twelve review of system are negative besides mentioned above. Allergies: Coded Allergies: Penicillins (Unverified Allergy, Severe, Syncope, 12/03/24) Exam Vital Signs Vital Signs Date Time Temp Pulse Resp B/P (MAP) Pulse Ox O2 Delivery O2 Flow Rate FiO2 04/25/25 14:20 98.4 73 16 153/63 (93) 95 98.4 04/25/25 10:10 Room Air* 0 21 Exam HEENT pupils are reactive Neck is supple CV is S1-S2 regular rate and rhythm Respiratory diminished breath sounds bases GI positive bowel sound Extremity no edema SINKER PULLER no motor deficit Labs/Xrays Labs Test 04/25/25 09:36 Range/Units White Blood Count 13.4 H 4.4-10.8 10^3/uL Red Blood Count 5.38 4.5-5.90 10^6/uL Hemoglobin 15.3 13.5-17.5 g/dL Hematocrit 45.9 41.0-53.0 % Mean Corpuscular Volume 85.3 80.0-100.0 fL Mean Corpuscular Hemoglobin 28.4 28.0-32.0 pg Mean Corpuscular Hemoglobin Concent 33.3 32.0-36.0 g/dL Red Cell Distribution Width 13.5 11.8-14.3 % Platelet Count 308 140-450 10^3/uL Mean Platelet Volume 7.7 6.9-10.8 fL Neutrophils (%) (Auto) 74.5 37.0-80.0 % Lymphocytes (%) (Auto) 18.9 10.0-50.0 % Monocytes (%) (Auto) 6.3 0.0-12.0 % Eosinophils (%) (Auto) 0.1 0.0-7.0 % Basophils (%) (Auto) 0.2 0.0-2.0 % Neutrophils # (Auto) 10.0 H 1.6-8.6 10 ^3/uL Lymphocytes # (Auto) 2.5 0.4-5.4 10 ^3/uL Monocytes # (Auto) 0.8 0-1.3 10 ^3/uL Eosinophils # (Auto) 0 0-0.8 10 ^3/uL Basophils # (Auto) 0 0-0.2 10 ^3/uL Nucleated Red Blood Cells 0.1 % Prothrombin Time 10.8 9.3-11.8 sec Prothrombin Time INR 1.02 0.9-1.15 Activated Partial Thromboplast Time 27.9 24.5-34.5 SEC Sodium Level 140 136-145 mmol/L Potassium Level 5.2 H 3.5-5.1 mmol/L Chloride Level 105 98-107 mmol/L Carbon Dioxide Level 26 20-31 mmol/L Anion Gap 9 5-15 Blood Urea Nitrogen 7 L 9-23 mg/dL Creatinine 1.07 0.700-1.30 mg/dL Glomerular Filtration Rate Calc 74 >90 mL/min BUN/Creatinine Ratio 6.5 L 10.0-20.0 Serum Glucose 98 74-106 mg/dL Calcium Level 9.9 8.7-10.4 mg/dL SEPSIS Sepsis Screen Date sepsis recognized/suspect: Apr 25, 2025 Time Sepsis recognized/suspect: 0743 Recent Procedure: No On Antibiotic Therapy: No Respiratory Rate >20: No Heart Rate >90: Yes Temp<36 C (96.8 F) or >38.3 C: No SBP <90 or MAP <65 mmHG: No New Acute Mental Status Change: No Is the patient on CPAP, BIPAP,: No Physician Orders Ct Ab Pel With Iv Con Only (04/25/25 09:27) Admit (04/25/25 15:53) Code Status (04/25/25 15:53) 0.9% Ns 1000 Ml (04/25/25 16:00) Ondansetron Hcl (Zofran) (04/25/25 16:00) Enoxaparin Sodium (Lovenox) (04/26/25 10:00) Complete Blood Count (04/26/25 04:00) Comprehensive Metabolic Panel (04/26/25 04:00) Condition: Stable (04/25/25 15:53) Acetaminophen Tablet (Tylenol Tablet) (04/25/25 16:00) Clear Liq Diet (04/25/25 Dinner) Morphine Sulfate Injection (04/25/25 16:00) Nitroglycerin Sublingual (Ntrostat Subli (04/25/25 16:00) Morphine Sulfate Injection (04/25/25 16:00) Stat Ekg For Chest Pain (04/25/25 15:53) Notify Of Changes From Base (04/25/25 15:53) Office Machine Inspector For 24 Hours (04/25/25 15:53) Emergency Dysrhythmia Protocol (04/25/25:53) Rhythm Strips Once Every Shift (04/25/25 15:53) Oxygen By Nasal Cannula (04/25/25 15:53) Levofloxacin Levaquin (04/25/25 16:00) Metronidazole Ivpb Flagyl (04/25/25 22:00) * [employer] (04/25/25 15:53) Hydrocodone-Acet 5/325mg Tab ([place] 5/32 (04/25/25 16:00) Vital Signs Date Time Temp Pulse Resp B/P (MAP) Pulse Ox O2 Delivery O2 Flow Rate FiO2 04/25/25 14:20 98.4 73 16 153/63 (93) 95 98.4 04/25/25 10:32 70 15 126/70 04/25/25 10:10 Room Air* 0 21 04/25/25 10:09 98.0 77 18 157/84 (108) 98 98.0 04/25/25 10:02 77 18 157/84 Laboratory Tests Test 04/25/25 09:36 White Blood Count 13.4 10^3/uL (4.4-10.8) H Medications Medications Dose Ordered Sig/Sujey Route Start Time Stop Time Status Last Admin Dose Admin Metronidazole 100 ml @ 100 mls/hr ONCE ONCE IV 04/25/25 12:00 04/25/25 12:59 DC 04/25/25 12:42 100 MLS/HR Morphine Sulfate 4 mg ONCE ONCE IV 04/25/25 09:30 04/25/25 09:31 DC 04/25/25 10:02 4 MG Ondansetron HCl 4 mg ONCE ONCE IV 04/25/25 09:30 04/25/25 09:31 DC 04/25/25 10:02 4 MG Sodium Chloride 1,000 ml @ 1,000 mls/hr Q1H ONCE IV 04/25/25 09:30 04/25/25 10:29 DC 04/25/25 10:03 1,000 MLS/HR Assessment/Plan Assessment/Plan 69-year-old male with a known history of dyslipidemia, BPH, history of hives currently on fexofenadine who initially admitted to the hospital with the abdominal pain with a bright red blood per rectum found to have 1. Lower GI bleed 2. Descending and sigmoid colon colitis 3. BPH 4. Dyslipidemia 5. History of hives -admit to [facility], monitor H&H, IV antibiotics, GI consultation -patient will be benefitted from colonoscopy outpatient. Plan discussed with: Patient, Spouse My Orders Orders - JEFF LIAO MD Procedure Category Date Status Time Admit ADMIT 04/25/25 Transmitted 15:53 Code Status CODE 04/25/25 Transmitted 15:53 0.9% Ns 1000 Ml [facility]A 04/25/25 Transmitted 16:00 Ondansetron Hcl PHA 04/25/25 Transmitted (Zofran) 16:00 Enoxaparin Sodium PHA 04/26/25 Transmitted (Lovenox) 10:00 Complete Blood Count LAB 04/26/25 Verified 04:00 Comprehensive LAB 04/26/25 Verified Metabolic Panel 04:00 Condition: Stable [facility] 04/25/25 Transmitted 15:53 Acetaminophen Tablet [facility] 04/25/25 Transmitted (Tylenol Tablet) 16:00 Clear Liq Diet DIET 04/25/25 Verified Dinner Morphine Sulfate [facility] 04/25/25 Verified Injection 16:00 Nitroglycerin [facility] 04/25/25 Verified Sublingual (Ntrostat 16:00 Morphine Sulfate [facility] 04/25/25 Verified Injection 16:00 Stat Ekg For Chest [facility] 04/25/25 Verified Pain 15:53 Notify Of Changes [facility] 04/25/25 Verified From Base 15:53 Office Machine Inspector For [facility] 04/25/25 Verified 24 Hours 15:53 Emergency Dysrhythmia [facility] 04/25/25 Verified Protocol 15:53 Rhythm Strips Once [facility] 04/25/25 Verified Every Shift 15:53 Oxygen By Nasal RT 04/25/25 Verified Cannula 15:53 Levofloxacin Levaquin [facility] 04/25/25 Verified 16:00 Metronidazole Ivpb [facility] 04/25/25 Verified Flagyl 22:00 * [employer] CONS 04/25/25 Verified 15:53 Hydrocodone-Acet [facility] 04/25/25 Transmitted 5/325mg Tab ([place] 16:00 Problem List: (1) Bright red blood per rectum (2) Non-specific colitis (3) Intractable abdominal pain Date of Service: Apr 25, 2025 Billing Provider: JEFF LIAO MD Common Visit Codes: NOT BILLABLE JEFF LIAO MD Apr 25, 2025 16:02
[2025-04-25] MEDS ORDERED: MORPHINE SULFATE 4 MG/ML SYR/VIAL IV PRN ×2 (16:45→17:00)
[2025-04-25] MEDS: SODIUM CHLORIDE 0.9% 1,000 ML IV SCH (16:46)
[2025-04-25 17:30] VITALS: BP 142/72; PULSE 66; RESP 16; TEMP 98.6; O2SAT 98
[2025-04-25] MEDS ORDERED: DOCU-94 PO (18:35)
[2025-04-25] MEDS: HYDROcodone-ACET 5/325MG TAB PO PRN (18:49)
[2025-04-25 20:00] VITALS: PULSE 72; RESP 19; O2SAT 95
[2025-04-25 22:30] VITALS: BP 156/86; PULSE 67; RESP 19; TEMP 98.2; O2SAT 95
[2025-04-26 01:00] VITALS: BP 136/80; PULSE 72; RESP 19; TEMP 98.2; O2SAT 95
[2025-04-26 04:48] VITALS: BP 129/74; PULSE 68; RESP 19; TEMP 98.1; O2SAT 97
[2025-04-26 06:28] LABS: Hematocrit 40.3 % (41.0-53.0); Hemoglobin 13.7 g/dL (13.5-17.5); Mean Corpuscular Hemoglobin 28.9 pg (28.0-32.0); Mean Corpuscular Volume 84.9 fL (80.0-100.0); Nucleated Red Blood Cells % 0.0 %
[2025-04-26 06:41] LABS: Alanine Aminotransferase 18 U/L (7-40); Albumin 4.0 g/dL (3.2-4.8); Alkaline Phosphatase 87 U/L (46-116); Anion Gap 11 (5-15); BUN/Creatinine Ratio 7.0 (10.0-20.0); Bilirubin, Total 0.7 mg/dL (0.2-1.0); Calcium 9.7 mg/dL (8.7-10.4); Carbon Dioxide 26 mmol/L (20-31); Chloride 104 mmol/L (98-107); Glucose 100 mg/dL (74-106); Potassium 4.3 mmol/L (3.5-5.1); Sodium 141 mmol/L (136-145); Total Protein 6.7 g/dL (5.7-8.2)
[2025-04-26 06:43] LABS: Blood Urea Nitrogen 7 mg/dL (9-23)
[2025-04-26 08:54] VITALS: BP 133/78; PULSE 71; RESP 16; TEMP 97.8; O2SAT 96
[2025-04-26] MEDS: ENOXAPARIN SOD 40 MG/0.4 ML SYRINGE SC SCH (10:20)
[2025-04-26 13:19] VITALS: BP 133/87; PULSE 63; RESP 16; TEMP 98; O2SAT 96
--- NOTE | 2025-04-26 16:28 | DVHCONRES ---
Date Seen: Apr 26, 2025 Resident Creating Document: JHAJJ,SARPUNEET RESIDENT Referring Physician Dr. Pandya Reason for Consultation Descending and sigmoid colon colitis with a bright red blood per rectum History of Present Illness 69-year-old male with a known history of BPH, dyslipidemia, who presented to the hospital with a chief complaint of abdominal pain and noticing blood in the stool. Patient reported that he was feeling uncomfortable sensation in the abdomen in the last month and was having on and off loose stools and D before coming to the hospital he had nausea and started throwing up. Following that he had loose stools and noticed some blood in the stools following which she came to the hospital for further evaluation. Patient reported about 3 to 4 episodes of stools with blood per rectum Past Medical History Hyperlipidemia, ?inflammatory bowel disease Past Surgical History Total hip replacement Family History: FH: cancer G8 FATHER FH: colon cancer G8 BROTHER FH: heart attack G8 MOTHER Family History Noncontributory Social History Denies smoking, alcohol, drug use and lives with the family Allergies: Coded Allergies: Penicillins (Unverified Allergy, Severe, Syncope, 12/03/24) Home Meds Reported Medications Docusate Sodium (Colace) 100 Mg Cap, 1 CAP PO BID, #30 CAP 04/25/25 Multiple Vitamin (Multivitamins) Tab, 1 TAB PO DAILY, #30 TAB 2 Refills 12/03/24 Cholecalciferol (VITAMIN D3) 2,000 Unit Tab, 2000 UNIT OR DAILY, TAB 12/03/24 Omalizumab (Xolair) 300 Mg/2 Ml Inj, 300 MG SC once monthly, INJ 12/03/24 Hydrocodone-Acetaminophen (Hydrocodone Bitartrate/AC 7.5-300 mg) 1 Tab Tab, 1 TAB PO PRN, TAB 12/03/24 Fexofenadine Hcl (Fexofenadine Hcl) 180 Mg Tab, 180 MG PO DAILY, TAB 12/03/24 Tamsulosin Hcl (Tamsulosin Hcl) 0.4 Mg Cap, 0.4 MG PO DAILY, CAP 12/03/24 Rosuvastatin Calcium (Crestor) 5 Mg Tab, 5 MG PO DAILY, TAB 12/03/24 Current Medications Current Medications Medications (Trade) Dose Ordered Sig/Sujey Route PRN Reason Start Time Stop Time Status Last Admin Enoxaparin Sodium (Lovenox) 40 mg DAILY SC 04/26/25 10:00 04/26/25 10:20 Metronidazole 100 ml @ 100 mls/hr Q8HR IV 04/25/25 22:00 04/26/25 14:12 Morphine Sulfate 2 mg Q4HPRN PRN IV SEVERE PAIN (7-10 PAIN SCALE) 04/25/25 16:45 Morphine Sulfate 2 mg Q30MIN PRN IV for chest pain 04/25/25 17:00 Review of Systems Patient reports abdominal pain has improved but still has bouts of pain in the left side Noticed blood on wiping after he passed stool today Denies nausea or vomiting and is tolerating diet well Vital Signs Vital Signs Date Time Temp Pulse Resp B/P (MAP) Pulse Ox O2 Delivery O2 Flow Rate FiO2 04/26/25 13:19 98.0 63 16 133/87 (102) 96 98.0 04/26/25 08:00 Room Air* 0 21 Physical Exam Gen - no pallor, no scleral icterus Skin - Patients skin is warm and dry. HEENT - normocephalic, atraumatic, dry mucous membranes. Neck - supple, no lymphadenopathy Pulmonary - B/L equal air entry with vesicular breath sounds cardiovascular - regular S1,S2 heard GI - soft nontender abdomen. Bowel sounds normoactive. Neurological - Patient is alert and oriented x4 Labs/Diagnostic Data Labs Test 04/26/25 05:15 04/25/25 09:36 Range/Units White Blood Count 14.5 H 4.4-10.8 10^3/uL Red Blood Count 4.75 4.5-5.90 10^6/uL Hemoglobin 13.7 13.5-17.5 g/dL Hematocrit 40.3 #L 41.0-53.0 % Mean Corpuscular Volume 84.9 80.0-100.0 fL Mean Corpuscular Hemoglobin 28.9 28.0-32.0 pg Mean Corpuscular Hemoglobin Concent 34.0 32.0-36.0 g/dL Red Cell Distribution Width 13.7 11.8-14.3 % Platelet Count 264 140-450 10^3/uL Mean Platelet Volume 8.3 6.9-10.8 fL Neutrophils (%) (Auto) 67.1 37.0-80.0 % Lymphocytes (%) (Auto) 25.1 10.0-50.0 % Monocytes (%) (Auto) 6.8 0.0-12.0 % Eosinophils (%) (Auto) 0.9 0.0-7.0 % Basophils (%) (Auto) 0.1 0.0-2.0 % Neutrophils # (Auto) 9.8 H 1.6-8.6 10 ^3/uL Lymphocytes # (Auto) 3.6 0.4-5.4 10 ^3/uL Monocytes # (Auto) 1.0 0-1.3 10 ^3/uL Eosinophils # (Auto) 0.1 0-0.8 10 ^3/uL Basophils # (Auto) 0 0-0.2 10 ^3/uL Nucleated Red Blood Cells 0.0 % Sodium Level 141 136-145 mmol/L Potassium Level 4.3 3.5-5.1 mmol/L Chloride Level 104 98-107 mmol/L Carbon Dioxide Level 26 20-31 mmol/L Anion Gap 11 5-15 Blood Urea Nitrogen 7 L 9-23 mg/dL Creatinine 1.00 0.700-1.30 mg/dL Glomerular Filtration Rate Calc 80 >90 mL/min BUN/Creatinine Ratio 7.0 L 10.0-20.0 Serum Glucose 100 74-106 mg/dL Calcium Level 9.7 8.7-10.4 mg/dL Total Bilirubin 0.7 0.2-1.0 mg/dL Aspartate Amino Transferase (AST) 17 13-40 U/L Alanine Aminotransferase (ALT) 18 7-40 U/L Alkaline Phosphatase 87 46-116 U/L Total Protein 6.7 5.7-8.2 g/dL Albumin 4.0 3.2-4.8 g/dL Prothrombin Time 10.8 9.3-11.8 sec Prothrombin Time INR 1.02 0.9-1.15 Activated Partial Thromboplast Time 27.9 24.5-34.5 SEC Assessment Acute abdominal pain Hematochezia Segmental colitis likely ischemic ?Inflammatory Plan - IV fluids - continued on empiric IV antibiotics - monitor for any signs of abdominal distention/bowel obstruction - we will monitor the patient and managed conservatively as of now since there was extensive inflammation in the descending colon and recommend against any intervention Plan discussed with Dr. Martins Plan discussed with: Patient, Other (RN, primary team) LUIS MOORE RESIDENT Apr 26, 2025 16:28
--- NOTE | 2025-04-26 16:38 | DVHPN2 ---
Subjective Patient is complaining of minimal left-sided abdominal pain, also complaining of bright red blood in the stool. Changes from previous H/P or p: No Changes Objective Vitals Vital Signs Date Time Temp Pulse Resp B/P (MAP) Pulse Ox O2 Delivery O2 Flow Rate FiO2 04/26/25 13:19 98.0 63 16 133/87 (102) 96 98.0 04/26/25 08:00 Room Air* 0 21 Intake/Output Intake and Output 04/26/25 06:59 Intake Total 500 ml Balance 500 ml Intake Oral 500 ml # Voids 2 Exam HEENT pupils are reactive Neck is supple CV is S1-S2 regular rate and rhythm Respiratory diminished breath sounds bases GI positive bowel sound, positive tenderness in the left-sided abdominal with a minimal guarding no rigidity Extremity no edema [employer] no motor deficit Medications Current Medications Medications Dose Ordered Sig/Sujey Route Start Time Stop Time Status Last Admin Dose Admin Sodium Chloride 1,000 ml @ 120 mls/hr Q8H20M IV 04/25/25 16:00 04/26/25 07:46 120 MLS/HR Acetaminophen/ Hydrocodone Bitart 1 tab Q4HP PRN PO 04/25/25 16:00 04/26/25 14:14 1 TAB Ondansetron HCl 4 mg Q4HP PRN IV 04/25/25 16:00 Enoxaparin Sodium 40 mg DAILY SC 04/26/25 10:00 04/26/25 10:20 40 MG Acetaminophen 650 mg Q6HP PRN PO 04/25/25 16:00 Morphine Sulfate 2 mg Q4HPRN PRN IV 04/25/25 16:00 UNV Nitroglycerin 0.4 mg Q5MINP PRN SL 04/25/25 16:00 Morphine Sulfate 2 mg Q30M PRN IV 04/25/25 16:00 UNV Levofloxacin/ Dextrose 100 ml @ 100 mls/hr DAILY IV 04/25/25 16:00 04/26/25 10:19 100 MLS/HR Metronidazole 100 ml @ 100 mls/hr Q8HR IV 04/25/25 22:00 04/26/25 14:12 100 MLS/HR Morphine Sulfate 2 mg Q4HPRN PRN IV 04/25/25 16:45 Morphine Sulfate 2 mg Q30MIN PRN IV 04/25/25 17:00 Laboratory Results Laboratory Tests 04/26/25 05:15 Chemistry Test 04/26/25 05:15 Albumin 4.0 g/dL (3.2-4.8) Calcium Level 9.7 mg/dL (8.7-10.4) Total Protein 6.7 g/dL (5.7-8.2) LFT Test 04/26/25 05:15 Alanine Aminotransferase (ALT) 18 U/L (7-40) Alkaline Phosphatase 87 U/L (46-116) Aspartate Amino Transferase (AST) 17 U/L (13-40) Total Bilirubin 0.7 mg/dL (0.2-1.0) Assessment/Plan Assessment/Plan 69-year-old male with a known history of dyslipidemia, BPH, history of hives currently on fexofenadine who initially admitted to the hospital with the abdominal pain with a bright red blood per rectum found to have 1. Lower GI bleed suspected secondary to ischemic colitis 2. Descending and sigmoid colon ischemic colitis 3. BPH 4. Dyslipidemia 5. History of hives, currently on Eliquis -clear liquid diet as tolerated, monitor H&H, IV antibiotics, GI consultation appreciated -patient will be benefitted from colonoscopy outpatient in 4-6 weeks. Plan discussed with: Patient My Orders Orders - JEFF LIAO MD Procedure Category Date Status Time Morphine Sulfate PHA 04/25/25 In Process Injection 16:45 Morphine Sulfate PHA 04/25/25 In Process Injection 17:00 Date of Service: Apr 26, 2025 Billing Provider: JEFF LIAO MD Common Visit Codes: NOT BILLABLE JEFF LIAO MD Apr 26, 2025 16:38
[2025-04-26 16:47] VITALS: BP 145/76; PULSE 66; RESP 17; TEMP 98.2; O2SAT 96
[2025-04-26 21:00] VITALS: BP 134/80; PULSE 61; RESP 14; TEMP 98.8; O2SAT 95
[2025-04-26] MEDS: FEXOFENADINE HCL 60 MG TAB PO SCH (21:39)
[2025-04-27] VITALS (7 sets, daily range): BP systolic 125–137; BP diastolic 76–82; PULSE 59–64; RESP 14–20; TEMP 97.5–98.4; O2SAT 94–97
[2025-04-27] MEDS ORDERED: METR-344 PO (13:33)
[2025-04-27] MEDS ORDERED: LEVO500T91 PO (13:33)
--- NOTE | 2025-04-27 13:43 | DVHDS2 ---
Discharge Summary Date of Admission Apr 25, 2025 at 15:53 Date of Discharge: Apr 27, 2025 Labs/Diagnostic Data: Laboratory Results Test 04/26/25 05:15 04/25/25 09:36 White Blood Count 14.5 10^3/uL (4.4-10.8) Red Blood Count 4.75 10^6/uL (4.5-5.90) Hemoglobin 13.7 g/dL (13.5-17.5) Hematocrit 40.3 % (41.0-53.0) Mean Corpuscular Volume 84.9 fL (80.0-100.0) Mean Corpuscular Hemoglobin 28.9 pg (28.0-32.0) Mean Corpuscular Hemoglobin Concent 34.0 g/dL (32.0-36.0) Red Cell Distribution Width 13.7 % (11.8-14.3) Platelet Count 264 10^3/uL (140-450) Mean Platelet Volume 8.3 fL (6.9-10.8) Neutrophils (%) (Auto) 67.1 % (37.0-80.0) Lymphocytes (%) (Auto) 25.1 % (10.0-50.0) Monocytes (%) (Auto) 6.8 % (0.0-12.0) Eosinophils (%) (Auto) 0.9 % (0.0-7.0) Basophils (%) (Auto) 0.1 % (0.0-2.0) Neutrophils # (Auto) 9.8 10 ^3/uL (1.6-8.6) Lymphocytes # (Auto) 3.6 10 ^3/uL (0.4-5.4) Monocytes # (Auto) 1.0 10 ^3/uL (0-1.3) Eosinophils # (Auto) 0.1 10 ^3/uL (0-0.8) Basophils # (Auto) 0 10 ^3/uL (0-0.2) Nucleated Red Blood Cells 0.0 % Sodium Level 141 mmol/L (136-145) Potassium Level 4.3 mmol/L (3.5-5.1) Chloride Level 104 mmol/L (98-107) Carbon Dioxide Level 26 mmol/L (20-31) Anion Gap 11 (5-15) Blood Urea Nitrogen 7 mg/dL (9-23) Creatinine 1.00 mg/dL (0.700-1.30) Glomerular Filtration Rate Calc 80 mL/min (>90) BUN/Creatinine Ratio 7.0 (10.0-20.0) Serum Glucose 100 mg/dL (74-106) Calcium Level 9.7 mg/dL (8.7-10.4) Total Bilirubin 0.7 mg/dL (0.2-1.0) Aspartate Amino Transferase (AST) 17 U/L (13-40) Alanine Aminotransferase (ALT) 18 U/L (7-40) Alkaline Phosphatase 87 U/L (46-116) Total Protein 6.7 g/dL (5.7-8.2) Albumin 4.0 g/dL (3.2-4.8) Prothrombin Time 10.8 sec (9.3-11.8) Prothrombin Time INR 1.02 (0.9-1.15) Activated Partial Thromboplast Time 27.9 SEC (24.5-34.5) Other Laboratory Tests 04/26/25 05:15 Brief Hx & Hospital Course: 69-year-old male with a known history of dyslipidemia, BPH, history of hives currently on fexofenadine who initially admitted to the hospital with the abdominal pain with a bright red blood per rectum found to have lower GI bleed with suspected ischemic colitis on the left side. Patient's has a descending and sigmoid colon ischemic colitis. Patient was seen by GI. Patient was given IV antibiotics as well as pain meds as needed. Patient is currently tolerating full liquid diet and we will advance to soft diet for dinner if tolerates that can be discharged with a close follow up as an outpatient with the PCP and GI. Patient is currently understand verbalized understanding and agreeable to the plan. Condition at Discharge: Stable Final Diagnosis/Problems List 69-year-old male with a known history of dyslipidemia, BPH, history of hives currently on fexofenadine who initially admitted to the hospital with the abdominal pain with a bright red blood per rectum found to have 1. Lower GI bleed suspected secondary to ischemic colitis 2. Descending and sigmoid colon ischemic colitis 3. BPH 4. Dyslipidemia 5. History of hives, currently on fexofenadine Discharge Disposition: Home SNF Discharge Will this Physician continue t: No Discharge Instruct/Medications Diet: Cardiac 2g Na,low cholest Activity: See Comment Activity comment: No driving, no signing legal documents, no playing on machinery while on narcotics Follow Up/Referral: Follow up with the PCP and GI in 1-2 weeks Medications: Levaquin and Flagyl as prescribed New Medications: Levofloxacin Hemihydrate (Levaquin 500 Mg) 500 Mg Tab 1 TAB PO DAILY, #10 TAB Metronidazole (Flagyl) 500 Mg Tab 1 TAB PO TID, #30 TAB Continued Medications: Cholecalciferol (Vitamin D3) 2,000 Unit Tab 2000 UNIT OR DAILY, TAB Fexofenadine Hcl (Fexofenadine Hcl) 180 Mg Tab 180 MG PO DAILY, TAB Hydrocodone-Acetaminophen (Hydrocodone Bitartrate/AC 7.5-300 mg) 1 Tab Tab 1 TAB PO PRN, TAB Multiple Vitamin (Multivitamins) Tab 1 TAB PO DAILY, #30 TAB 2 Refills Omalizumab (Xolair) 300 Mg/2 Ml Inj 300 MG SC once monthly, INJ Rosuvastatin Calcium (Crestor) 5 Mg Tab 5 MG PO DAILY, TAB Tamsulosin Hcl (Tamsulosin Hcl) 0.4 Mg Cap 0.4 MG PO DAILY, CAP Discontinued Medications: Docusate Sodium (Colace) 100 Mg Cap 1 CAP PO BID, #30 CAP Scheduled Cholecalciferol (Vitamin D3), 2,000 UNIT OR DAILY, (Reported) Fexofenadine Hcl (Fexofenadine Hcl), 180 MG PO DAILY, (Reported) Hydrocodone-Acetaminophen (Hydrocodone Bitartrate/AC 7.5-300 mg), 1 TAB PO PRN, (Reported) Levofloxacin Hemihydrate (Levaquin 500 Mg), 1 TAB PO DAILY Metronidazole (Flagyl), 1 TAB PO TID Multiple Vitamin (Multivitamins), 1 TAB PO DAILY, (Reported) Omalizumab (Xolair), 300 MG SC once monthly, (Reported) Rosuvastatin Calcium (Crestor), 5 MG PO DAILY, (Reported) Tamsulosin Hcl (Tamsulosin Hcl), 0.4 MG PO DAILY, (Reported) Discontinued Medications Docusate Sodium (Colace), 1 CAP PO BID, (Reported) Discharge Statement: "Patient was advised to return to the ER or call 911 if any headaches, dizziness, shortness of breath, chest pain, abdominal pain, bleeding, fevers, or worsening of medical condition. Patient was counseled about treatment plan, medications, possible side effects, patientverbalized understanding. All questions were answered to the best of my ability. This discharge took greater then 30 minutes in planning, reviewing documentation, counseling the patient, and discussing with other team members." ASSESSMENT ASSESSMENT Assessment 69-year-old male with a known history of dyslipidemia, BPH, history of hives currently on fexofenadine who initially admitted to the hospital with the abdominal pain with a bright red blood per rectum found to have 1. Lower GI bleed suspected secondary to ischemic colitis 2. Descending and sigmoid colon ischemic colitis 3. BPH 4. Dyslipidemia 5. History of hives, currently on fexofenadine Date of Service: Apr 27, 2025 Billing Provider: JEFF LIAO MD Common Visit Codes: NOT BILLABLE JEFF LIAO MD Apr 27, 2025 13:43
--- NOTE | 2025-04-27 15:47 | DVHPN2 ---
Progress Note Date Seen: Apr 27, 2025 Resident Creating Document: JHPhoebeJLUIS Contreras RESIDENT Medical Necessity Reason Pt with a Central, PICC or Fol: No Subjective Review of Systems Patient reported abdominal pain has improved Denies nausea or vomiting Tolerating full liquid diet well No blood in the stool noted Objective vital signs Vital Sign Date Time Temp Pulse Resp B/P (MAP) Pulse Ox O2 Delivery O2 Flow Rate FiO2 04/27/25 14:00 97.7 64 18 97 04/27/25 12:39 135/81 (99) 04/27/25 07:50 Room Air* 0 21 Total Intake and Output 04/26/25 04/26/25 04/27/25 15:00 23:00 07:00 Intake Total 300 ml 725 ml 1600 ml Balance 300 ml 725 ml 1600 ml medications Current Medications Medications Dose Ordered Sig/Sujey Route Start Time Stop Time Status Last Admin Dose Admin Sodium Chloride 1,000 ml @ 120 mls/hr Q8H20M IV 04/25/25 16:00 04/27/25 08:51 120 MLS/HR Acetaminophen/ Hydrocodone Bitart 1 tab Q4HP PRN PO 04/25/25 16:00 04/27/25 11:04 1 TAB Ondansetron HCl 4 mg Q4HP PRN IV 04/25/25 16:00 Enoxaparin Sodium 40 mg DAILY SC 04/26/25 10:00 04/26/25 10:20 40 MG Acetaminophen 650 mg Q6HP PRN PO 04/25/25 16:00 Morphine Sulfate 2 mg Q4HPRN PRN IV 04/25/25 16:00 UNV Nitroglycerin 0.4 mg Q5MINP PRN SL 04/25/25 16:00 Morphine Sulfate 2 mg Q30M PRN IV 04/25/25 16:00 UNV Levofloxacin/ Dextrose 100 ml @ 100 mls/hr DAILY IV 04/25/25 16:00 04/27/25 08:50 100 MLS/HR Metronidazole 100 ml @ 100 mls/hr Q8HR IV 04/25/25 22:00 04/27/25 05:36 100 MLS/HR Morphine Sulfate 2 mg Q4HPRN PRN IV 04/25/25 16:45 Morphine Sulfate 2 mg Q30MIN PRN IV 04/25/25 17:00 Fexofenadine HCl 60 mg Q12HR PO 04/26/25 22:00 04/27/25 08:50 60 MG Examination Gen - no pallor, no scleral icterus Skin - Patients skin is warm and dry. HEENT - normocephalic, atraumatic, dry mucous membranes. Neck - supple, no lymphadenopathy Pulmonary - B/L equal air entry with vesicular breath sounds cardiovascular - regular S1,S2 heard GI - soft nontender abdomen. Bowel sounds normoactive. Neurological - Patient is alert and oriented x4 laboratory and microbiology Laboratory Tests 04/26/25 05:15 Test 04/26/25 05:15 Range/Units Serum Glucose 100 74-106 mg/dL Problem List/Assessment/Plan Problem List/Assessment/Plan Acute abdominal pain Hematochezia Segmental colitis likely ischemic ?Inflammatory Plan - abdominal pain has improved - Tolerating full liquid diet well advised to continue on full liquid diet for another 4-5 days and then advanced as tolerated - follow up in the GI outpatient clinic in 2-4 weeks Plan discussed with Dr. Martins Plan discussed with: Patient, Other (LANCE Jean-Baptiste) LUIS MOORE RESIDENT Apr 27, 2025 15:47
== END 2025-04-27 19:05 | disposition home or self-care (01) | DRG 394 ==
LOC: ER 07:42 → OVERFLOW 15:53 → CENTRAL 22:30
PROVIDERS: ADMIT Internal Medicine; ATTEND Internal Medicine
DX: K55.9 Vascular disorder of intestine, unspecified (principal); K50.10 Crohn's disease of large intestine without complications; E78.5 Hyperlipidemia, unspecified; K92.1 Melena; Z96.649 Presence of unspecified artificial hip joint; N40.0 Benign prostatic hyperplasia without lower urinary tract symptoms; Z88.0 Allergy status to penicillin; Z79.01 Long term (current) use of anticoagulants; Z79.899 Other long term (current) drug therapy
CPT/HCPCS: 36415; 74177; 80048; 80053; 85025; 85610; 85730; 99291; G0378; J1956; J2405; J3490